=== PATIENT | female | born 1970 | race Caucasian/White ===

== ENCOUNTER → 2024-05-06 08:56 | Outpatient (REF) | payer OTHER, SELFPAY | LOC: HWEVLT 08:56 | PROVIDERS: ATTENDING PHYSICIAN Radiology Vascular & Interventional Radiology | DX: I83.893 Varicose veins of bilateral lower extremities with other complications (principal) | CPT/HCPCS: 93970 ==

== ENCOUNTER → 2024-07-23 09:56 | Outpatient (REF) | payer OTHER, SELFPAY | LOC: WDC 09:56 | PROVIDERS: ATTENDING PHYSICIAN Physician Assistant Medical | DX: N63.20 Unspecified lump in the left breast, unspecified quadrant (principal); N63.22 Unspecified lump in the left breast, upper inner quadrant | CPT/HCPCS: 76642; 77062; 77066 ==